=== PATIENT | male | born 1990 | race Caucasian/White ===

== ENCOUNTER 2019-08-01 18:40 | Emergency (ER) | payer OTHER ==
[~2019-08-01] VITALS: Ht 177.8 cm; Wt 79.4 kg
[2019-08-01] MEDS ORDERED: PREDNISONE50 MG PO (20:24)
[2019-08-01] MEDS ORDERED: EPIPEN0.3 MG/0.1 IM (20:24)
[2019-08-01 20:35] VITALS: BP 107/72
== END 2019-08-01 20:35 | disposition home or self-care (01) ==
LOC: M.ERS 18:40
DX: L29.9 Pruritus, unspecified (principal); T78.40XA Allergy, unspecified, initial encounter; Y92.89 Other specified places as the place of occurrence of the external cause

== ENCOUNTER → 2020-02-28 | Outpatient (CLI) | payer OTHER ==
[~2020-02-28] MED LIST: EPIPEN0.3 MG/0.1 IM; PREDNISONE50 MG PO
== END ==
LOC: M.MRI 08:30
DX: Z01.818 Encounter for other preprocedural examination (principal)